=== PATIENT | female | born 1965 | race Caucasian/White ===

== ENCOUNTER 2018-11-29 19:31 | Emergency (ER) | payer MEDICARE, MEDICAID ==
[~2018-11-29] VITALS: Ht 165.1 cm; Wt 60.9 kg
[2018-11-29 19:37] VITALS: BP 117/85
[2018-11-29 21:24] LABS: CLARITY,URINE CLEAR (Clear); COLOR,URINE STRAW (Yellow); GLUCOSE, URINE NEGATIVE (Neg); KETONES,URINE NEGATIVE (Neg); LEUKOCYTE ESTERASE ,URINE TRACE (Neg); NITRITES, URINE NEGATIVE (Neg); OCCULT BLOOD,URINE TRACE-INTACT (Neg); PROTEIN,URINE NEGATIVE (Neg); UROBILINOGEN,URINE 0.2 E.U/dL (0.2-1.0)
[2018-11-29 21:26] LABS: BASOPHILS % (AUTO) 0.5 % (0-1); EOSINOPHILS # (AUTO) 0.1 X10'3 (0-0.9); EOSINOPHILS % (AUTO) 1.1 % (0-6); HEMATOCRIT 37.1 % (35.0-45.0); HEMOGLOBIN 12.5 g/dl (12.0-16.0); LYMPHOCYTES # (AUTO) 2.5 X10'3 (1.1-4.8); LYMPHOCYTES % (AUTO) 34.8 % (21-51); MEAN CORPUSCULAR HEMOGLOBIN 30.9 PG (27.0-31.0); MEAN CORPUSCULAR HGB CONC 33.6 g/dL (33.0-36.5); MEAN PLATELET VOLUME 8.5 FL (7.4-10.4); MONOCYTES # (AUTO) 0.4 X10'3 (0-0.9); MONOCYTES % (AUTO) 5.1 % (2-12); NEUTROPHILS # (AUTO) 4.2 X10'3 (1.8-7.7); NEUTROPHILS % (AUTO) 58.5 % (42-75); PLATELET COUNT 263 X10'3 (140-440); RED BLOOD COUNT 4.03 X10'6 (4.20-5.60); RED CELL DISTRIBUTION WIDTH 13.2 % (11.5-14.5); WHITE BLOOD COUNT 7.2 X10'3 (4.5-11.0)
[2018-11-29 21:30] LABS: UA COLLECTION TYPE CLN CATCH MIDSTREAM
[2018-11-29 21:32] LABS: ALANINE AMINOTRANSFERASE 22 U/L (12-78); ALBUMIN 3.8 G/DL (3.4-5.0); ALBUMIN/GLOBULIN RATIO 1.3 (1.1-1.5); ALKALINE PHOSPHATASE 78 IU/L (46-116); ANION GAP 4 (8-16); ASPARTATE AMINO TRANSFERASE 12 U/L (10-37); BILIRUBIN,TOTAL 0.1 MG/DL (0.1-1.0); BLOOD UREA NITROGEN 7 MG/DL (7-18); BUN/CREATININE RATIO 13.2 (6.6-38.0); CALCIUM 9.4 MG/DL (8.5-10.1); CHLORIDE 102 MMOL/L (99-107); CREATININE 0.53 MG/DL (0.40-0.90); GLUCOSE 85 MG/DL (70-104); POTASSIUM 3.8 MMOL/L (3.5-5.1); SODIUM 137 MMOL/L (135-145); TOTAL CARBON DIOXIDE 30.6 MMOL/L (24-32); TOTAL PROTEIN 6.7 G/DL (6.4-8.2); eGFR > 90 ML/MIN
[2018-11-29 21:35] LABS: BACTERIA,URINE NONE SEEN /HPF (Neg); RBC,URINE 0-2 /HPF (0-2)
[2018-11-29 21:36] LABS: SQUAMOUS EPITHELIAL CELL,UR FEW /LPF (FEW); WBC,URINE 0-4 /HPF (0-4)
== END 2018-11-29 21:50 | disposition home or self-care (01) ==
LOC: ER 19:33
DX: R20.2 Paresthesia of skin (principal)
CPT/HCPCS: 36415; 80053; 81001; 85025; 87088; 99283

== ENCOUNTER 2019-10-06 21:18 | Emergency (ER) | payer MEDICARE, MEDICAID ==
[~2019-10-06] VITALS: Ht 165.1 cm; Wt 60.0 kg
[2019-10-06 22:37] LABS: CLARITY,URINE CLEAR (Clear); COLOR,URINE STRAW (Yellow); GLUCOSE, URINE NEGATIVE (Neg); KETONES,URINE NEGATIVE (Neg); LEUKOCYTE ESTERASE ,URINE NEGATIVE (Neg); NITRITES, URINE NEGATIVE (Neg); OCCULT BLOOD,URINE SMALL (Neg); PROTEIN,URINE NEGATIVE (Neg); UROBILINOGEN,URINE 0.2 E.U/dL (0.2-1.0)
[2019-10-06 22:52] LABS: UA COLLECTION TYPE CLN CATCH MIDSTREAM
[2019-10-06 22:55] LABS: BACTERIA,URINE NONE SEEN /HPF (Neg); MUCUS STRANDS NONE SEEN /LPF (Neg); RBC,URINE 0-2 /HPF (0-2); SQUAMOUS EPITHELIAL CELL,UR FEW /LPF (FEW); WBC,URINE NONE SEEN /HPF (0-4)
[2019-10-06 22:55] LABS: BASOPHILS % (AUTO) 0.5 % (0-1); EOSINOPHILS % (AUTO) 0.3 % (0-6); HEMATOCRIT 36.6 % (35.0-45.0); HEMOGLOBIN 12.3 g/dl (12.0-16.0); LYMPHOCYTES # (AUTO) 1.8 X10'3 (1.1-4.8); LYMPHOCYTES % (AUTO) 26.5 % (21-51); MEAN CORPUSCULAR HEMOGLOBIN 30.6 PG (27.0-31.0); MEAN CORPUSCULAR HGB CONC 33.6 g/dL (33.0-36.5); MEAN CORPUSCULAR VOLUME 90.8 FL (78-98); MEAN PLATELET VOLUME 8.8 FL (7.4-10.4); MONOCYTES # (AUTO) 0.4 X10'3 (0-0.9); NEUTROPHILS # (AUTO) 4.6 X10'3 (1.8-7.7); NEUTROPHILS % (AUTO) 66.7 % (42-75); PLATELET COUNT 246 X10'3 (140-440); RED BLOOD COUNT 4.03 X10'6 (4.20-5.60); RED CELL DISTRIBUTION WIDTH 12.7 % (11.5-14.5)
[2019-10-06 23:12] LABS: ALANINE AMINOTRANSFERASE 36 U/L (12-78); ALBUMIN 3.9 G/DL (3.4-5.0); ALBUMIN/GLOBULIN RATIO 1.3 (1.1-1.5); ALKALINE PHOSPHATASE 84 IU/L (46-116); ANION GAP 8 (8-16); ASPARTATE AMINO TRANSFERASE 15 U/L (10-37); BILIRUBIN,TOTAL 0.2 MG/DL (0.1-1.0); BLOOD UREA NITROGEN 11 MG/DL (7-18); CALCIUM 9.1 MG/DL (8.5-10.1); CHLORIDE 95 MMOL/L (99-107); GLUCOSE 99 MG/DL (70-104); LIPASE 119 U/L (73-393); POTASSIUM 3.4 MMOL/L (3.5-5.1); SODIUM 128 MMOL/L (135-145); TOTAL CARBON DIOXIDE 24.9 MMOL/L (24-32); TOTAL PROTEIN 6.9 G/DL (6.4-8.2)
[2019-10-06 23:15] LABS: BUN/CREATININE RATIO 16.7 (6.6-38.0); CREATININE 0.66 MG/DL (0.40-0.90); eGFR > 90 ML/MIN
[2019-10-06] MEDS ORDERED: mag hydrox/Alum hydrox/simeth 30ml oral suspension PO ONE (23:25)
[2019-10-06] MEDS ORDERED: famotidine 20mg tablet PO ONE (23:25)
[2019-10-06] MEDS ORDERED: dicyclomine 10 MG capsule PO ONE (23:25)
[2019-10-07] MEDS ORDERED: FAMO20TA8 PO (00:07)
[2019-10-07] MEDS ORDERED: DICY10CA88 PO (00:07)
[2019-10-07 00:23] VITALS: BP 144/92
== END 2019-10-07 00:18 | disposition home or self-care (01) ==
LOC: ER 21:18
DX: R10.13 Epigastric pain (principal); R51 Headache; R11.0 Nausea; R53.83 Other fatigue; F12.90 Cannabis use, unspecified, uncomplicated; Z79.899 Other long term (current) drug therapy
CPT/HCPCS: 36415; 80053; 81001; 83690; 85025; 99283; 99284

== ENCOUNTER 2021-02-24 08:49 | Day surgery (SDC) | payer MEDICARE, MEDICAID ==
[2021-02-17 13:08] LABS: BASOPHILS % (AUTO) 0.4 % (0-1); EOSINOPHILS # (AUTO) 0.1 X10'3 (0-0.9); LYMPHOCYTES # (AUTO) 1.8 X10'3 (1.1-4.8); MONOCYTES # (AUTO) 0.3 X10'3 (0-0.9); PRE OP HEMOGLOBIN 12.8 g/dL (12.0-16.0)
[2021-02-17 13:10] LABS: EOSINOPHILS % (AUTO) 1.2 % (0-6); LYMPHOCYTES % (AUTO) 29.2 % (21-51); MEAN CORPUSCULAR HEMOGLOBIN 30.3 PG (27.0-31.0); MEAN CORPUSCULAR HGB CONC 33.6 g/dL (33.0-36.5); MEAN CORPUSCULAR VOLUME 90.1 FL (78-98); MEAN PLATELET VOLUME 8.5 FL (7.4-10.4); MONOCYTES % (AUTO) 5.2 % (2-12); NEUTROPHILS # (AUTO) 3.9 X10'3 (1.8-7.7); PRE OP HEMATOCRIT 37.9 % (35.0-45.0); PRE OP PLATELET COUNT 312 X10'3 (140-440); RED BLOOD COUNT 4.21 X10'6 (4.20-5.60); RED CELL DISTRIBUTION WIDTH 12.8 % (11.5-14.5)
[2021-02-17 13:21] LABS: ALBUMIN 3.8 G/DL (3.4-5.0); ALBUMIN/GLOBULIN RATIO 1.2 (1.1-1.5); ALKALINE PHOSPHATASE 71 IU/L (46-116); BLOOD UREA NITROGEN 10 MG/DL (7-18); BUN/CREATININE RATIO 14.5 (6.6-38.0); CALCIUM 8.9 MG/DL (8.5-10.1); CHLORIDE 104 MMOL/L (99-107); CREATININE 0.69 MG/DL (0.40-0.90); PRE OP ALT 34 U/L (30-65); PRE OP ANION GAP 8 (8-16); PRE OP AST 17 U/L (10-37); PRE OP BILIRUB, TOTAL 0.4 MG/DL (0.0-1.0); PRE OP GLUCOSE 99 MG/DL (70-104); PRE OP SODIUM 138 MMOL/L (135-145); TOTAL CARBON DIOXIDE 25.9 MMOL/L (24-32); eGFR 88 ML/MIN
[2021-02-17 16:13] LABS: ANISOCYTOSIS FEW; GIANT PLATELET FEW; PLATELET ESTIMATE NORMAL
[2021-02-24] VITALS (20 sets, daily range): BP systolic 127–187; BP diastolic 80–101
[~2021-02-24] VITALS: Ht 165.1 cm; Wt 64.4 kg
[~2021-02-24 08:49] MED LIST: INDOCYANINE GREEN 25 MG/10 ML VIAL IV ONE; VILA40TA PO; cefazolin/dext.iso 2gm/50ml IV ONE; famotidine 20mg tablet PO ONE; ringers solution, lacted 1,000 ML IV SCH; sevoflurane 250ml liquid IH ONE
[2021-02-24] MEDS ORDERED: ringers solution, lacted 1,000 ML IV SCH (10:50)
[2021-02-24] MEDS ORDERED: morphine 4 MG/ML inj SYRINge IV PRN (10:50)
[2021-02-24] MEDS ORDERED: meperidine/PF 25mg/ml syringe IV PRN ×2 (10:50)
[2021-02-24] MEDS ORDERED: proCHLORperazine 10 MG/2 ml inj IV PRN (10:50)
[2021-02-24] MEDS ORDERED: morphine 2 MG/ML inj. syringe IV PRN (10:50)
[2021-02-24] MEDS ORDERED: ondansetron/PF 4mg/2ml inj IV PRN (10:50)
[2021-02-24] MEDS ORDERED: scopolamine 1mg/72 hr patch TD ONE ×2 (10:55→11:05)
[2021-02-24] MEDS ORDERED: LIDOcaine 1% 30ml preserv. free vial ONE (11:30)
[2021-02-24] MEDS ORDERED: BUPIVAcaine/PF 2.5mg/ml (0.25%) 10ml vial ONE (11:31)
[2021-02-24] MEDS ORDERED: fentaNYL/PF 50MCG/1 ML 2ML syringe ONE (11:46)
[2021-02-24] MEDS ORDERED: midazolam 1 mg/ML 2ml injection ONE (11:46)
[2021-02-24] MEDS ORDERED: rocuronium 10mg/ml inj IV ONE (11:59)
[2021-02-24] MEDS ORDERED: propofol inj 20 ML IV ONE (11:59)
[2021-02-24] MEDS ORDERED: ondansetron/PF 4mg/2ml inj ONE (12:34)
[2021-02-24] MEDS ORDERED: dexamethasone sod phosphate 4mg/ml inj. ONE (12:34)
[2021-02-24] MEDS ORDERED: sugammadex 200mg/2ml injection IV ONE (12:37)
--- NOTE | 2021-02-24 12:52 | NUR ---
Received from OR via bed 20g left FA with LR, 4 lap sites with dermabond CDI , accompanied by Anesthesiologist Dr Flores and report given by Anesthesiolgist. Addendum: 02/24/21 at 1304 by Starla William RN Amended: Links added.
[2021-02-24] MEDS ORDERED: HYDROcodone/acetaminophen 5mg/325mg tablet PO PRN (13:00)
[2021-02-24] MEDS: meperidine/PF 25mg/ml syringe IV PRN ×2 (13:39→14:27)
--- NOTE | 2021-02-24 16:05 | NUR ---
PT UP AND GETTING DRESSED, [employer] CALLED FOR TRANSPORT, VSS, PT'S PAIN BETTER-GIVEN MORPHINE AND NORCO, DENIES N/V, LAP SITES X4 - CDI, PIV D/CD-CANULA INTACT, D/C INSTRUCTIONS GIVEN TO PT-ALL QUESTIONS ANSWERED, TAKEN VIA W/C TO TRANSPORT SERVICE WHO GAVE RIDE HOME.
== END 2021-02-24 16:05 | disposition home or self-care (01) ==
LOC: PAS 08:49
PROVIDERS: ATTEND Surgery
DX: K81.1 Chronic cholecystitis (principal); Z20.822 Contact with and (suspected) exposure to COVID-19; Z88.1 Allergy status to other antibiotic agents; Z90.710 Acquired absence of both cervix and uterus; Z98.890 Other specified postprocedural states; Z79.899 Other long term (current) drug therapy
CPT/HCPCS: 36415; 47563; 80053; 82948; 85025; 93005; J0690; J1100; J2175; J2250; J2270; J2405; J2704; J3010; J3490; J7030; J7120; U0003; U0005; Z7506; Z7508; Z7512; 85008; 88304; A4215; A4618; A7000

== ENCOUNTER 2022-05-16 22:01 | Emergency (ER) | payer MEDICARE, MEDICAID ==
[~2022-05-16] VITALS: Ht 165.1 cm; Wt 61.4 kg
[~2022-05-16 22:01] MED LIST changes: -INDOCYANINE GREEN 25 MG/10 ML VIAL IV ONE; -cefazolin/dext.iso 2gm/50ml IV ONE; -famotidine 20mg tablet PO ONE; -ringers solution, lacted 1,000 ML IV SCH; -sevoflurane 250ml liquid IH ONE
[2022-05-17] MEDS ORDERED: dexamethasone sod phosphate 10mg/ml inj IV STA (03:03)
[2022-05-17] MEDS ORDERED: diphenhydrAMINE 50 mg/ml inj IV ONE (03:05)
[2022-05-17] MEDS ORDERED: metoclopramide 5 mg/ml inj IV ONE (03:05)
[2022-05-17] MEDS ORDERED: normal saline 1000ML IV soln IVB ONE (03:05)
[2022-05-17] MEDS ORDERED: cloNIDine 0.1 mg tablet PO ONE (03:05)
[2022-05-17 04:11] LABS: BASOPHILS # (AUTO) 0.1 X10'3 (0-0.2); BASOPHILS % (AUTO) 0.9 % (0-1); EOSINOPHILS % (AUTO) 0.3 % (0-6); HEMATOCRIT 39.7 % (35.0-45.0); HEMOGLOBIN 13.7 g/dl (12.0-16.0); LYMPHOCYTES # (AUTO) 2.5 X10'3 (1.1-4.8); LYMPHOCYTES % (AUTO) 33.6 % (21-51); MEAN CORPUSCULAR HEMOGLOBIN 30.4 PG (27.0-31.0); MEAN CORPUSCULAR HGB CONC 34.4 g/dL (33.0-36.5); MEAN CORPUSCULAR VOLUME 88.4 FL (78-98); MEAN PLATELET VOLUME 8.3 FL (7.4-10.4); MONOCYTES # (AUTO) 0.4 X10'3 (0-0.9); MONOCYTES % (AUTO) 5.3 % (2-12); NEUTROPHILS # (AUTO) 4.4 X10'3 (1.8-7.7); NEUTROPHILS % (AUTO) 59.9 % (42-75); PLATELET COUNT 342 X10'3 (140-440); RED BLOOD COUNT 4.49 X10'6 (4.20-5.60); RED CELL DISTRIBUTION WIDTH 12.6 % (11.5-14.5); WHITE BLOOD COUNT 7.4 X10'3 (4.5-11.0)
[2022-05-17 04:33] LABS: ALANINE AMINOTRANSFERASE 35 U/L (12-78); ALBUMIN 4.2 G/DL (3.4-5.0); ALBUMIN/GLOBULIN RATIO 1.4 (1.1-1.5); ALKALINE PHOSPHATASE 87 IU/L (46-116); ANION GAP 9 (8-16); ASPARTATE AMINO TRANSFERASE 25 U/L (10-37); BILIRUBIN,TOTAL 0.3 MG/DL (0.1-1.0); BLOOD UREA NITROGEN 8 MG/DL (7-18); BUN/CREATININE RATIO 13.8 (6.6-38.0); CALCIUM 9.9 MG/DL (8.5-10.1); CHLORIDE 101 MMOL/L (99-107); CREATININE 0.58 MG/DL (0.40-0.90); GLUCOSE 118 MG/DL (70-104); SODIUM 133 MMOL/L (135-145); TOTAL CARBON DIOXIDE 23.4 MMOL/L (24-32); TOTAL PROTEIN 7.3 G/DL (6.4-8.2); eGFR > 90 ML/MIN
[2022-05-17 04:40] LABS: POTASSIUM 3.8 MMOL/L (3.5-5.1)
[2022-05-17] MEDS ORDERED: BUTA-281 PO (04:51)
[2022-05-17] MEDS ORDERED: ONDA4TAB12 PO (04:51)
[2022-05-17] MEDS ORDERED: ketorolac trometh. 30mg/ml inj. IV ONE (04:55)
[2022-05-17 05:13] VITALS: BP 151/87
== END 2022-05-17 05:18 | disposition home or self-care (01) ==
LOC: ER 22:01
DX: R51.9 Headache, unspecified (principal); F12.90 Cannabis use, unspecified, uncomplicated; Z88.1 Allergy status to other antibiotic agents; Z90.49 Acquired absence of other specified parts of digestive tract
CPT/HCPCS: 36415; 70450; 80053; 84145; 85025; 96374; 96375; 99285; J1100; J1200; J1885; J2765; J7030; 99284